=== PATIENT | male | born 1990 | race Hispanic/Latino ===

== ENCOUNTER 2018-05-06 08:03 | Emergency (ER) | payer SELFPAY ==
--- NOTE | 2018-05-06 08:20 | ER ---
Nurse's Notes [facility] Name: Liam Carter Age: 28 yrs Sex: Male : 1990 Arrival Date: 05/06/2018 Time: 08:07 Bed 20 Private MD: Diagnosis: Allergic contact dermatitis Presentation: 05/06 08:08 Presenting complaint: Patient states: poison geraldine exposure x 1 week. Transition of care: sv patient was not received from another setting of care. Onset of symptoms was April 29, 2018. Care prior to arrival: None. 08:08 Method Of Arrival: Ambulatory sv 08:08 Acuity: SHIRA 4 sv 08:34 Risk Assessment: Do you want to hurt yourself or someone else? Patient reports no bp desire to harm self or others. Initial Sepsis Screen: Does the patient meet any 2 criteria? No. Patient's initial sepsis screen is negative. Does the patient have a suspected source of infection? No. Patient's initial sepsis screen is negative. Historical: - Allergies: 08:08 No Known Allergies; sv - Home Meds: 08:08 None [Active]; sv - PMHx: 08:08 None; sv - PSHx: 08:08 None; sv - Immunization history:: Flu vaccine is up to date. - Social history:: Smoking status: Patient/guardian denies using tobacco. - Ebola Screening: : No symptoms or risks identified at this time. Screenin:17 Abuse screen: Denies threats or abuse. Denies injuries from another. Nutritional bp screening: No deficits noted. Tuberculosis screening: No symptoms or risk factors identified. Fall Risk None identified. Assessment: 08:15 General: Appears in no apparent distress. comfortable, Behavior is calm, cooperative, bp appropriate for age. Pain: Denies pain. Neuro: Level of Consciousness is awake, alert, obeys commands, Oriented to person, place, time, situation, Appropriate for age. Cardiovascular: No deficits noted. Respiratory: Airway is patent Respiratory effort is even, unlabored, Respiratory pattern is regular, symmetrical. GI: No signs and/or symptoms were reported involving the gastrointestinal system. : No signs and/or symptoms were reported regarding the genitourinary system. EENT: No deficits noted. Derm: Rash noted that is vesicular, on SCATTERED GLOBALLY. Musculoskeletal: Circulation, motion, and sensation intact. Range of motion: intact in all extremities. 08:33 Reassessment: PT D/C HOME AMBULATORY WITH FAMILY, DX WITH ALLERGIC CONTACT DERMATITIS. bp Vital Signs: 08:09 BP 135 / 76; Pulse 69; Resp 18; Temp 97.3; Pulse Ox 99% ; Weight 88.45 kg; Height 5 ft. sv 8 in. (172.72 cm); Pain 0/10; 08:16 BP 120 / 61; Pulse 74; Resp 16; Pulse Ox 99% ; bp 08:09 Body Mass Index 29.65 (88.45 kg, 172.72 cm) sv ED Course: 08:07 Patient arrived in ED. as 08:08 Triage completed. sv 08:08 Arm band placed on right wrist. sv 08:10 Rodney Muse PA is PHCP. jr8 08:10 Ridge Escamilla MD is Attending Physician. jr8 08:15 Venkatesh Singh, JUDE is Primary Nurse. bp 08:17 Patient has correct armband on for positive identification. Placed in gown. Bed in low bp position. Call light in reach. Side rails up X2. Adult w/ patient. 08:34 No provider procedures requiring assistance completed. Patient did not have IV access bp during this emergency room visit. Administered Medications: 08:33 Drug: hydrOXYzine 25 mg Route: IM; Site: right deltoid; bp 08:33 Follow up: Response: No adverse reaction; Medication administered at discharge. bp Outcome: 08:20 Discharge ordered by . jr8 08:34 Discharged to home ambulatory, with family. bp 08:34 Condition: stable 08:34 Discharge instructions given to patient, Instructed on discharge instructions, follow up and referral plans. medication usage, Demonstrated understanding of instructions, follow-up care, medications, Prescriptions given X 1. 08:35 Patient left the ED. bp Signatures: Cally Justin RN RN Fatuma Ortiz as Rodney Muse PA PA jr8 Venkatesh Singh, JUDE RN bp Corrections: (The following items were deleted from the chart) 08:10 08:09 Pulse 69bpm; Resp 18bpm; Pulse Ox 99%; Temp 97.3F; 88.45 kg; Height 5 ft. 8 in.; sv BMI: 29.6; Pain 0/10; sv
--- NOTE | 2018-05-06 08:20 | EDPHYS ---
Physician Documentation [facility] Name: Liam Carter Age: 28 yrs Sex: Male : 1990 Arrival Date: 05/06/2018 Time: 08:07 Bed 20 Private MD: ED Physician Ridge Escamilla HPI: 05/06 08:17 This 28 yrs old Male presents to ER via Ambulatory with complaints of Rash. jr8 08:17 The patient's rash thought to be caused by Dermatitis. The rash is located on the body jr8 diffusely. The rash can be described as papular, vesicular. Onset: The symptoms/episode began/occurred gradually, 4 week(s) ago. Associated signs and symptoms: Pertinent positives: itching, Pain. Severity of symptoms: At their worst the symptoms were moderate in the emergency department the symptoms are unchanged. The patient has not experienced similar symptoms in the past. The patient has not recently seen a physician. Patient in contact with [employer] geraldine about 4 weeks ago. Has not had treatment for rash. Stated that it has not gone away. Historical: - Allergies: 08:08 No Known Allergies; sv - Home Meds: 08:08 None [Active]; sv - PMHx: 08:08 None; sv - PSHx: 08:08 None; sv - Immunization history:: Flu vaccine is up to date. - Social history:: Smoking status: Patient/guardian denies using tobacco. - Ebola Screening: : No symptoms or risks identified at this time. ROS: 08:17 Eyes: Negative for injury, pain, redness, and discharge, ENT: Negative for injury, jr8 pain, and discharge, Neck: Negative for injury, pain, and swelling, Cardiovascular: Negative for chest pain, palpitations, and edema, Respiratory: Negative for shortness of breath, cough, wheezing, and pleuritic chest pain, Abdomen/GI: Negative for abdominal pain, nausea, vomiting, diarrhea, and constipation, Back: Negative for injury and pain, MS/Extremity: Negative for injury and deformity, Neuro: Negative for headache, weakness, numbness, tingling, and seizure. 08:17 Skin: Positive for rash, diffusely. Exam: 08:17 Eyes: Pupils equal round and reactive to light, extra-ocular motions intact. Lids and jr8 lashes normal. Conjunctiva and sclera are non-icteric and not injected. Cornea within normal limits. Periorbital areas with no swelling, redness, or edema. ENT: Nares patent. No nasal discharge, no septal abnormalities noted. Tympanic membranes are normal and external auditory canals are clear. Oropharynx with no redness, swelling, or masses, exudates, or evidence of obstruction, uvula midline. Mucous membranes moist. Neck: Trachea midline, no thyromegaly or masses palpated, and no cervical lymphadenopathy. Supple, full range of motion without nuchal rigidity, or vertebral point tenderness. No Meningismus. Cardiovascular: Regular rate and rhythm with a normal S1 and S2. No gallops, murmurs, or rubs. Normal PMI, no JVD. No pulse deficits. Respiratory: Lungs have equal breath sounds bilaterally, clear to auscultation and percussion. No rales, rhonchi or wheezes noted. No increased work of breathing, no retractions or nasal flaring. Abdomen/GI: Soft, non-tender, with normal bowel sounds. No distension or tympany. No guarding or rebound. No evidence of tenderness throughout. Back: No spinal tenderness. No costovertebral tenderness. Full range of motion. MS/ Extremity: Pulses equal, no cyanosis. Neurovascular intact. Full, normal range of motion. Neuro: Awake and alert, GCS 15, oriented to person, place, time, and situation. Cranial nerves II-XII grossly intact. Motor strength 5/5 in all extremities. Sensory grossly intact. Cerebellar exam normal. Normal gait. 08:17 Skin: rash a moderate rash is noted, rash can be described as papular, vesicular, consistent with contact dermatitis, and is diffusely located. Vital Signs: 08:09 BP 135 / 76; Pulse 69; Resp 18; Temp 97.3; Pulse Ox 99% ; Weight 88.45 kg; Height 5 ft. sv 8 in. (172.72 cm); Pain 0/10; 08:16 BP 120 / 61; Pulse 74; Resp 16; Pulse Ox 99% ; bp 08:09 Body Mass Index 29.65 (88.45 kg, 172.72 cm) sv MDM: 08:10 Patient medically screened. 8 08:17 Data reviewed: vital signs, nurses notes, and as a result, I will discharge patient. jr8 Data interpreted: Pulse oximetry: on room air is 99 %. Interpretation: normal. Counseling: I had a detailed discussion with the patient and/or guardian regarding: the historical points, exam findings, and any diagnostic results supporting the discharge/admit diagnosis, the need for outpatient follow up, a family practitioner, to return to the emergency department if symptoms worsen or persist or if there are any questions or concerns that arise at home. Administered Medications: 08:33 Drug: hydrOXYzine 25 mg Route: IM; Site: right deltoid; bp 08:33 Follow up: Response: No adverse reaction; Medication administered at discharge. bp Disposition: 15:30 Co-signature as Attending Physician, Ridge Escamilla MD I agree with the assessment and omar plan of care. Disposition: 05/06/18 08:20 Discharged to Home. Impression: Allergic contact dermatitis. - Condition is Stable. - Discharge Instructions: Contact Dermatitis. - Prescriptions for Prednisone 20 mg Oral Tablet - take 3 tablets by ORAL route once daily for 5 days then 2 tabs once a day for 5 days, then 1 tab once a day for 5 days, then 1/2 tab for 3 days; 32 tablet. - Medication Reconciliation Form, Thank You Letter, Antibiotic Education, Prescription Opioid Use form. - Follow up: Private Physician; When: 1 week; Reason: Recheck today's complaints, Continuance of care, Re-evaluation by your physician. - Problem is new. - Symptoms are unchanged. Signatures: Cally Justin, RN RN Ridge Castillo MD MD cha Roszak, Josh, PA PA jr8 Venkatesh Singh RN RN bp Corrections: (The following items were deleted from the chart) 08:35 08:20 05/06/2018 08:20 Discharged to Home. Impression: Allergic contact dermatitis. bp Condition is Stable. Forms are Medication Reconciliation Form, Thank You Letter, Antibiotic Education, Prescription Opioid Use. Follow up: Private Physician; When: 1 week; Reason: Recheck today's complaints, Continuance of care, Re-evaluation by your physician. Problem is new. Symptoms are unchanged. jr8
[2018-05-06] MEDS ORDERED: hydrOXYzine HCl 50 MG/ML VIAL IM ONE (08:31)
== END 2018-05-06 08:35 | disposition home or self-care (01) ==
LOC: ER 08:03
DX: L23.9 Allergic contact dermatitis, unspecified cause (principal)
CPT/HCPCS: 96372; 99283; J3410

== ENCOUNTER 2018-12-03 23:59 | Emergency (ER) | payer SELFPAY ==
[2018-12-04] MEDS ORDERED: IBUPROFEN 400 MG TAB ONE (00:41)
[2018-12-04] MEDS ORDERED: BUPIVACAINE 0.5% PF 10 ML VIAL ONE (00:41)
[2018-12-04] MEDS ORDERED: ACETAMINOPHEN 500 MG TAB ONE (00:42)
[2018-12-04] MEDS ORDERED: IBUPROFEN 200 MG TAB PO ONE (00:42)
--- NOTE | 2018-12-04 01:33 | EDPHYS ---
Physician Documentation [facility] Name: Liam Carter Age: 28 yrs Sex: Male : 1990 Arrival Date: 12/04/2018 Time: 00:03 Bed 5 Private MD: ED Physician Armaan Bazzi HPI: 12/04 00:26 This 28 yrs old Male presents to ER via Ambulatory with complaints of wa Toothache. 00:26 The patient presents with pain, swelling. The problem is located in the upper left wa second molar. Onset: The symptoms/episode began/occurred today. Duration: The symptoms are continuous, and are steadily getting worse. Modifying factors: The symptoms are alleviated by nothing, the symptoms are aggravated by chewing, talking. Associated signs and symptoms: The patient has no apparent associated signs or symptoms. Severity of symptoms: At their worst the symptoms were moderate, in the emergency department the symptoms are actually worse, moderately. The patient has experienced similar episodes in the past, a few times. The patient has not recently seen a physician. states noted L upper molar pain. L side facial pain denies fever. . Historical: - Allergies: 00:20 No Known Allergies; ea - Home Meds: 00:20 None [Active]; ea - PMHx: 00:20 None; ea - PSHx: 00:20 None; ea - Immunization history:: Adult Immunizations up to date. - Social history:: Smoking status: Patient/guardian denies using tobacco. - Ebola Screening: : No symptoms or risks identified at this time. - Family history:: not pertinent. - Hospitalizations: : No recent hospitalization is reported. ROS: 00:28 Constitutional: Negative for fever, chills, and weight loss, Eyes: Negative for injury, wa pain, redness, and discharge, Neck: Negative for injury, pain, and swelling, Cardiovascular: Negative for chest pain, palpitations, and edema, Respiratory: Negative for shortness of breath, cough, wheezing, and pleuritic chest pain, Abdomen/GI: Negative for abdominal pain, nausea, vomiting, diarrhea, and constipation, Back: Negative for injury and pain, : Negative for injury, bleeding, discharge, and swelling, MS/Extremity: Negative for injury and deformity, Skin: Negative for injury, rash, and discoloration, Neuro: Negative for headache, weakness, numbness, tingling, and seizure, Psych: Negative for depression, anxiety, suicide ideation, homicidal ideation, and hallucinations. 00:28 ENT: Positive for dental pain, Teeth pain 00:28 All other systems are negative. Exam: 00:28 Constitutional: This is a well developed, well nourished patient who is awake, alert, wa and in no acute distress. Head/Face: Normocephalic, atraumatic. Eyes: Pupils equal round and reactive to light, extra-ocular motions intact. Lids and lashes normal. Conjunctiva and sclera are non-icteric and not injected. Cornea within normal limits. Periorbital areas with no swelling, redness, or edema. Neck: Trachea midline, no thyromegaly or masses palpated, and no cervical lymphadenopathy. Supple, full range of motion without nuchal rigidity, or vertebral point tenderness. No Meningismus. Chest/axilla: Normal chest wall appearance and motion. Nontender with no deformity. No lesions are appreciated. Cardiovascular: Regular rate and rhythm with a normal S1 and S2. No gallops, murmurs, or rubs. Normal PMI, no JVD. No pulse deficits. Respiratory: Lungs have equal breath sounds bilaterally, clear to auscultation and percussion. No rales, rhonchi or wheezes noted. No increased work of breathing, no retractions or nasal flaring. Abdomen/GI: Soft, non-tender, with normal bowel sounds. No distension or tympany. No guarding or rebound. No evidence of tenderness throughout. Back: No spinal tenderness. No costovertebral tenderness. Full range of motion. Skin: Warm, dry with normal turgor. Normal color with no rashes, no lesions, and no evidence of cellulitis. MS/ Extremity: Pulses equal, no cyanosis. Neurovascular intact. Full, normal range of motion. Neuro: Awake and alert, GCS 15, oriented to person, place, time, and situation. Cranial nerves II-XII grossly intact. Motor strength 5/5 in all extremities. Sensory grossly intact. Cerebellar exam normal. Normal gait. Psych: Awake, alert, with orientation to person, place and time. Behavior, mood, and affect are within normal limits. 00:28 ENT: Mouth: Dental exam: dental caries, fractured teeth are noted, specifically the upper left second molar (#15), noted cracked tooth with caries down to the base. no redness, swelling or fluctuance. Vital Signs: 00:20 BP 145 / 103; Pulse 84; Resp 18; Temp 98.6; Pulse Ox 99% on R/A; Weight 88.45 kg; ea Height 5 ft. 8 in. (172.72 cm); 00:21 Pain 10/10; ea 01:50 BP 135 / 89; Pulse 85; Resp 17 S; Pulse Ox 99% on R/A; jd3 00:20 Body Mass Index 29.65 (88.45 kg, 172.72 cm) ea Procedures: 01:05 Nerve block: (dental) of L PSA block. Medication: Marcaine 0.5%, Amount: 1.8 mls were wa injected, Effect: the patient has resolution of the pain, Set up for procedure. Performed by Armaan Bazzi MD Patient tolerated well. MDM: 00:19 Patient medically screened. wa 00:30 Differential diagnosis: dental caries, pain control. will begin abx. will attempt wa dental block for better control of pain. 01:32 Data reviewed: vital signs, nurses notes. Response to treatment: the patient's symptoms wa have markedly improved after treatment. Administered Medications: 00:30 Drug: Motrin 600 mg Route: PO; ea 01:30 Follow up: Response: No adverse reaction jd3 00:30 Drug: Tylenol 1000 mg Route: PO; ea 01:30 Follow up: Response: No adverse reaction jd3 01:13 Drug: Bupivacaine (0.5 %) 5 ml {Note: administered by provider.} Volume: 10 ml; Route: ea Infiltration; 01:53 Follow up: Response: No adverse reaction jd3 Disposition: 12/04/18 01:33 Discharged to Home. Impression: Acute Left Upper Second Molar Pain. - Condition is Stable. - Discharge Instructions: Dental Pain, [id number], Dental Caries, [id number]. - Prescriptions for Ibuprofen 600 mg Oral Tablet - take 1 tablet by ORAL route every 6 hours As needed take with food; 30 tablet. penicillin V potassium 500 mg Oral tablet - take 1 tablet by ORAL route 3 times per day for 7 days; 21 tablet. - Medication Reconciliation Form, Thank You Letter, Antibiotic Education, Prescription Opioid Use, Work release form form. - Follow up: Private Physician; When: 1 - 2 days. - Problem is new. - Symptoms have improved. - Notes: follow up with your dentist tomorrow for further dental evaluation. take medication as prescribed. you may take 2 extra-strength tylenol with the motrin 2-3 times as day as needed Signatures: Chica Rodas, RN Armaan Barrera ea, MD MD wa Davies, Jonathon, RN RN jd3 Corrections: (The following items were deleted from the chart) 01:53 01:33 12/04/2018 01:33 Discharged to Home. Impression: Acute Left Upper Second Molar jd3 Pain. Condition is Stable. Forms are Medication Reconciliation Form, Thank You Letter, Antibiotic Education, Prescription Opioid Use. Follow up: Private Physician; When: 1 - 2 days. Problem is new. Symptoms have improved. fartun
--- NOTE | 2018-12-04 01:33 | ER ---
Nurse's Notes [facility] Name: Liam Carter Age: 28 yrs Sex: Male : 1990 Arrival Date: 12/04/2018 Time: 00:03 Bed 5 Private MD: Diagnosis: Acute Left Upper Second Molar Pain Presentation: 12/04 00:14 Presenting complaint: Patient states: Pt reports he started having pain to left side of ea lower jaw that radiates to left ear. Transition of care: patient was not received from another setting of care. Onset of symptoms was December 04, 2018. Risk Assessment: Do you want to hurt yourself or someone else? Patient reports no desire to harm self or others. Initial Sepsis Screen: Does the patient meet any 2 criteria? No. Patient's initial sepsis screen is negative. Does the patient have a suspected source of infection? No. Patient's initial sepsis screen is negative. Care prior to arrival: Medication(s) given: Motrin, 800 mg. 00:14 Method Of Arrival: Ambulatory ea 00:14 Acuity: SHIRA 4 ea Triage Assessment: 00:21 General: Appears in no apparent distress. Behavior is calm, cooperative, appropriate ea for age. Pain: Complains of pain in left lower jaw to left ear. EENT: Reports pain in left ear, left base of the skull and left mandible. Neuro: Level of Consciousness is awake, alert, obeys commands, Oriented to person, place, time, situation. Respiratory: Airway is patent Respiratory effort is even, unlabored, Respiratory pattern is regular, symmetrical. Derm: Skin is pink, warm \T\ dry. Historical: - Allergies: 00:20 No Known Allergies; ea - Home Meds: 00:20 None [Active]; ea - PMHx: 00:20 None; ea - PSHx: 00:20 None; ea - Immunization history:: Adult Immunizations up to date. - Social history:: Smoking status: Patient/guardian denies using tobacco. - Ebola Screening: : No symptoms or risks identified at this time. - Family history:: not pertinent. - Hospitalizations: : No recent hospitalization is reported. Screenin:25 Abuse screen: Denies threats or abuse. Nutritional screening: No deficits noted. ea Tuberculosis screening: No symptoms or risk factors identified. Fall Risk None identified. Assessment: 00:25 General: Appears in no apparent distress. uncomfortable, Behavior is calm, cooperative, jd3 appropriate for age. Pain: Complains of pain in mouth. Neuro: Level of Consciousness is awake, alert, obeys commands, Oriented to person, place, time, situation, Appropriate for age. Cardiovascular: Capillary refill < 3 seconds Patient's skin is warm and dry. Respiratory: Airway is patent Respiratory effort is even, unlabored, Respiratory pattern is regular, symmetrical. GI: No signs and/or symptoms were reported involving the gastrointestinal system. : No signs and/or symptoms were reported regarding the genitourinary system. EENT: Reports pain in left mandible. Derm: Skin is intact, Skin is dry, Skin is normal, Skin temperature is warm. Musculoskeletal: Circulation, motion, and sensation intact. Range of motion: intact in all extremities. 01:49 Reassessment: Patient appears in no apparent distress at this time. Patient and/or jd3 family updated on plan of care and expected duration. Pain level reassessed. Patient is alert, oriented x 3, equal unlabored respirations, skin warm/dry/pink. Vital Signs: 00:20 BP 145 / 103; Pulse 84; Resp 18; Temp 98.6; Pulse Ox 99% on R/A; Weight 88.45 kg; ea Height 5 ft. 8 in. (172.72 cm); 00:21 Pain 10/10; ea 01:50 BP 135 / 89; Pulse 85; Resp 17 S; Pulse Ox 99% on R/A; jd3 00:20 Body Mass Index 29.65 (88.45 kg, 172.72 cm) ea ED Course: 00:03 Patient arrived in ED. es 00:14 Arm band placed on right wrist. ea 00:14 Patient has correct armband on for positive identification. Placed in gown. Bed in low ea position. Call light in reach. 00:19 Triage completed. ea 00:19 Armaan Bazzi MD is Attending Physician. wa 00:28 Linwood Mejia RN is Primary Nurse. jd3 01:50 No provider procedures requiring assistance completed. Patient did not have IV access jd3 during this emergency room visit. Administered Medications: 00:30 Drug: Motrin 600 mg Route: PO; ea 01:30 Follow up: Response: No adverse reaction jd3 00:30 Drug: Tylenol 1000 mg Route: PO; ea 01:30 Follow up: Response: No adverse reaction jd3 01:13 Drug: Bupivacaine (0.5 %) 5 ml {Note: administered by provider.} Volume: 10 ml; Route: ea Infiltration; 01:53 Follow up: Response: No adverse reaction jd3 Outcome: 01:33 Discharge ordered by . fartun 01:52 Discharged to home ambulatory. jd3 01:52 Condition: stable 01:52 Discharge instructions given to patient, Instructed on discharge instructions, follow up and referral plans. medication usage, Demonstrated understanding of instructions, follow-up care, medications, Prescriptions given X 2. 01:53 Patient left the ED. jd3 Signatures: Kim Delgado Elena RN RN Armaan Arevalo MD MD wa Davies, Jonathon RN RN jd3
== END 2018-12-04 01:53 | disposition home or self-care (01) ==
LOC: ER 23:59
DX: K08.89 Other specified disorders of teeth and supporting structures (principal)
CPT/HCPCS: 99283